=== PATIENT | male | born 1960 | race Caucasian/White ===

== ENCOUNTER → 2018-10-26 12:30 | Outpatient (CLI) | payer OTHER, SELFPAY ==
--- NOTE | 2018-10-26 12:36 | ECHOCS_ITS ---
Reason For Study: MURMUR Procedure This was a 2D Doppler, Color Flow transthoracic echocardiogram. Contrast injection was performed. Exam performed in department. Left Ventricle Normal size and thickness. The estimated ejection fraction is 65 %. Normal diastology for age. No regional wall motion abnormalities noted. Right Ventricle Normal size and thickness. Normal systolic function. Atria The left atrium is moderately enlarged. The right atrium is mildly enlarged. Normal atrial septum. Mitral Valve The mitral valve is structurally normal. No prolapse or stenosis seen. Tricuspid Valve Normal tricuspid valve. Unable to estimate RV systolic pressure due to inadequate jet, pulmonary artery pressure probably normal. Aortic Valve Normal aortic valve. Trisinus/trileaflet aortic valve. Pulmonic Valve Normal pulmonic valve. Trivial pulmonic valve insufficiency. Great Vessels Normal aortic root. Normal arch. Normal inferior vena cava. Pericardium/Pleural No pericardial effusion. Medication 22 gauge I.V. with prn adaptor inserted into right arm. Diluted definity 3ml given slow IV push to enhance endocardial definition. MMode/2D Measurements & Calculations LVIDd: 4.2 cm IVSd: 1.1 cm Ao root diam: 3.4 cm LVIDs: 2.9 cm LVPWd: 1.1 cm RVDd: 3.4 cm FS: 31.1 % LAV(MOD-bp): 77.5 ml LVAd ap4: 34.7 cm2 SV(MOD-sp4): 65.8 ml LAV(MOD-bp) Indexed: 32.6 ml/m2 EDV(MOD-sp4): 106.6 ml LAV(MOD-sp2): 65.4 ml EDV(sp4-el): 114.6 ml LAV(MOD-sp4): 84.9 ml LVAs ap4: 19.3 cm2 ESV(MOD-sp4): 40.8 ml ESV(sp4-el): 43.6 ml EF(MOD-sp4): 61.7 % EF(sp4-el): 61.9 % SV(sp4-el): 71.0 ml LA A4 area: 26.2 cm2 LA dimension(2D): 4.3 cm RA A4 area: 21.3 cm2 Time Measurements MV dec time: 0.22 sec Doppler Measurements & Calculations MV E max teofilo: 108.8 cm/sec Lat Peak E' Teofilo: 13.2 cm/sec Med Peak E' Teofilo: 9.4 cm/sec MV A max teofilo: 76.0 cm/sec E/E' lat: 8.3 E/E' med: 11.5 MV E/A: 1.4 Ao V2 max: 134.5 cm/sec LV V1 max: 112.0 cm/sec PA V2 max: 103.6 cm/sec Ao max P.2 mmHg LV V1 max P.0 mmHg Interpretation Summary The estimated ejection fraction is 65 %. Normal diastology for age. The left atrium is moderately enlarged. Unable to estimate RV systolic pressure due to inadequate jet, pulmonary artery pressure probably normal. The study was technically difficult. There is no comparison study available. Contrast injection was performed. Ordering Physician: Quentin Parry Referring Physician: Quentin Parry Performed By: Anais Fox, JOHN, RVT
== END ==
LOC: CVS 12:30
PROVIDERS: Family Provider Family Medicine; PCP Family Medicine; Referring Provider Family Medicine; Visit Provider Family Medicine
DX: R01.1 Cardiac murmur, unspecified (principal)
CPT/HCPCS: 93306; Q9957; A4216; C8929